=== PATIENT | female | born 1970 | race Caucasian/White ===

== ENCOUNTER 2016-12-02 10:59 | Emergency (ER) | payer BC ==
[~2016-12-02] VITALS: Ht 167.6 cm; Wt 52.2 kg
[~2016-12-02 10:59] MED LIST: AMBIEN10 M1 ORAL; COLACE100 MG ORAL; GILDESS FE 1-21 EACH PO; HYDROCODON-ACE1 EA15 ORAL; LEXAPRO10 MG ORAL; NITROFURANTOIN100 M2 ORAL; REGLAN10 MG ORAL; XANAX0.5 MG ORAL; ZOFRAN4 M1 ORAL
[2016-12-02] MEDS ORDERED: TdaP Vaccine 0.5ml Syr IM ONE (12:00)
[2016-12-02] MEDS ORDERED: Bacitracin Oint UD TOPIC ONE (12:09)
[2016-12-02] MEDS ORDERED: Norco 5mg/325mg tab ORAL ONE (12:15)
[2016-12-02] MEDS ORDERED: LEXAPRO20 MG ORAL (13:10)
[2016-12-02] MEDS ORDERED: KLONOPIN0.5 MG ORAL (13:10)
--- NOTE | 2016-12-02 13:47 | Diagnostic Imaging Report ---
Indication: TRAUMA Technique: 3 views hand Comparison: none Findings: No acute fractures. No dislocations. Joint spaces are preserved Impression: Negative
--- NOTE | 2016-12-02 13:49 | Diagnostic Imaging Report ---
Indications: TRAUMA left foot pain Technique: 3 views of the left foot Comparison: None Findings: No acute fractures. No dislocations. Joint spaces are preserved. No radiopaque foreign body. Normal mineralization. Impression: No acute process
--- NOTE | 2016-12-02 13:50 | Diagnostic Imaging Report ---
Indication: TRAUMA Technique: 3 views right foot Comparison: none Findings: No acute fractures. No dislocations. The joint spaces are preserved. There is mild hallux valgus Impression: Negative
--- NOTE | 2016-12-02 14:32 | Diagnostic Imaging Report ---
Indication: TRAUMA Technique: 3 views left hand Comparison: none Findings: There is ulnar minus variance. No acute fractures. No dislocations. Joint spaces are preserved. Impression: No acute process
--- NOTE | 2016-12-02 14:44 | Emergency Room Report ---
History of Present Illness General Chief Complaint: Animal Bite Source: Patient Present Illness HPI This patient states that she was trying to stop her pitbull dog from attacking killing her cat. She states that during the process when she was holding back the dog the dog attacked her and bit her on her legs, hands and arms. She states that the worse pain is on her left heel and foot. She has no other injuries or complaints. Allergies: Coded Allergies: No Known Allergies (Unverified , 11/10/14) Patient History Past Medical History: none Social History: Denies: alcohol use, drug use, smoking Reviewed Nursing Documentation: PMH: Agreed, PSxH: Agreed Nursing Documentation-PMH Past Medical History: No Stated History Review of Systems All Other Systems: negative except mentioned in HPI Physical Exam Vital Signs Date Time Temp Pulse Resp B/P Pulse Ox O2 Delivery O2 Flow Rate FiO2 12/02/16 11:15 98.8 93 18 113/54 98 Room Air Sp02 EP Interpretation: reviewed, normal General Appearance: no apparent distress, alert, GCS 15, non-toxic Head: normocephalic, other - Superficial abrasion of the right cheek. Eyes: bilateral eye PERRL, bilateral eye normal inspection ENT: hearing grossly normal, normal pharynx, no angioedema, normal voice Neck: full range of motion, supple/symm/no masses Respiratory: no respiratory distress, no retraction, no accessory muscle use, speaking full sentences Rectal: deferred Musculoskeletal: back normal, normal range of motion, other - Puncture wounds consistent with teeth bite of the left heel with associated swelling and ecchymoses. The puncture wounds of the left toes, top of the left foot and left sampson. Scattered bite hunter/puncture wounds on the right foot, toes, sampson, right and left hands and right and left forearms. Swelling and ecchymoses of the left second and third digits. Pain with range of motion of the second and third digits. Neurologic: alert, oriented x3, responsive, motor strength/tone normal, sensory intact, speech normal Psychiatric: judgement/insight normal, memory normal, mood/affect normal, no suicidal/homicidal ideation Reflexes: 3+ bicep (R), 3+ bicep (L), 3+ tricep (R), 3+ tricep (L), 3+ knee (R) , 3+ knee (L) Skin: normal color, no rash, warm/dry, well hydrated Lymphatic: no adenopathy Procedures Splinting Splinting : Consent: Verbal Location: L. 2nd and 3rd digit Pre-Made Type: metal Splint: fingers Pre-Proc Neuro Vasc Exam: normal Post-Proc Neuro Vasc Exam: normal Patient Tolerated: Well Complications: None Medical Decision Making Diagnostic Impression: Primary Impression: Multiple puncture wounds Additional Impressions: Dog bites Abrasions of multiple sites Multiple contusions ER Course This patient presents with multiple puncture wounds secondary to dog bites on her feet, legs, hands and arms. She also has an abrasion on her face. She has sprained of her left second and third digits. All of her wounds were irrigated and bacitracin was applied. The wounds were dressed. I did obtain x-rays of bilateral feet and hands and was no evidence of fracture or foreign body. The patient was also given a tetanus shot. The dog attacked the patient is her own dog and is fully immunized to include rabies. I will give the patient course of antibiotics to prevent infection. She was also given crutches for comfort given that she has significant swelling, ecchymoses an injury to the soft tissue of her left heel. Patient is given close return precautions and followup instructions. Other X-Ray Diagnostic Results Other X-Ray Diagnostic Results : X-Ray Ordered: R. hand, L. hand, R. foot, L. foot EP Interpretation: No Findings: other Number of Views: other Other Impression No fracture or foreign body. Please see official reports. Last Vital Signs Date Time Temp Pulse Resp B/P Pulse Ox O2 Delivery O2 Flow Rate FiO2 12/02/16 11:15 98.8 93 18 113/54 98 Room Air Disposition: HOME, SELF-CARE Condition: Improved Referrals: NON PHYSICIAN (PCP) ERIC WU D.O. Dec 02, 2016 14:44
[2016-12-02] MEDS ORDERED: IBUPROFEN600 MG ORAL (14:46)
[2016-12-02] MEDS ORDERED: NORCO 5-325 TA1 EAC1 ORAL (14:46)
[2016-12-02] MEDS ORDERED: AUGMENTIN 875-1 EAC1 ORAL (14:46)
[2016-12-02 15:00] VITALS: BP 92/54
== END 2016-12-02 15:03 | disposition home or self-care (01) ==
LOC: EMR 11:37
DX: S81.852A Open bite, left lower leg, initial encounter (principal); S81.832A Puncture wound without foreign body, left lower leg, initial encounter; S91.135A Puncture wound without foreign body of left lesser toe(s) without damage to nail, initial encounter; S00.81XA Abrasion of other part of head, initial encounter; S91.332A Puncture wound without foreign body, left foot, initial encounter; S91.331A Puncture wound without foreign body, right foot, initial encounter; S81.831A Puncture wound without foreign body, right lower leg, initial encounter; S51.831A Puncture wound without foreign body of right forearm, initial encounter; S90.122A Contusion of left lesser toe(s) without damage to nail, initial encounter; S90.32XA Contusion of left foot, initial encounter; W54.0XXA Bitten by dog, initial encounter; Y92.019 Unspecified place in single-family (private) house as the place of occurrence of the external cause; Z23 Encounter for immunization
CPT/HCPCS: 29280; 90471; 90715; 96372; 99284

== ENCOUNTER 2017-05-02 16:31 | Emergency (ER) | payer BC ==
[~2017-05-02] VITALS: Ht 167.6 cm; Wt 54.4 kg
[~2017-05-02 16:31] MED LIST changes: +AUGMENTIN 875-1 EAC1 ORAL; +IBUPROFEN600 MG ORAL; +KLONOPIN0.5 MG ORAL; +LEXAPRO20 MG ORAL; +NORCO 5-325 TA1 EAC1 ORAL
[2017-05-02] MEDS ORDERED: Norco 5mg/325mg tab ORAL ONE (17:15)
--- NOTE | 2017-05-02 17:23 | Emergency Room Report ---
History of Present Illness General Chief Complaint: Upper Extremity Injury Source: Patient Present Illness HPI 46 YO Female presents to the ED c/o 06/01 in severity localized pain to the base of the left thumb s/p FOOSH yesterday. denies bruising, pt. denies previous injury to the extremity. pt. reports pain exacerbated with movement of the left thumb. pt. is right hand dominant. Denies hitting her head or LOC. Denies numbness tingling or loss of sensation or gross motor movements of the extremities, incontinence of bowel or bladder. Denies CP, Palpitations, LOC, AMS , dizziness, Changes in Vision, Sensation, paresthesias, or a sudden severe headache. Allergies: Coded Allergies: No Known Allergies (Unverified , 11/10/14) Patient History Past Medical History: see triage record Past Surgical History: none Pertinent Family History: none Last Menstrual Period: 04/23/17 Now: No : 0 Para: 0 Reviewed Nursing Documentation: PMH: Agreed, PSxH: Agreed Nursing Documentation-PMH Past Medical History: No History, Except For Hx Cardiac Problems: No - fibroid removed ,hyperthyroidism,panai attacks Review of Systems All Other Systems: negative except mentioned in HPI Physical Exam Vital Signs Date Time Temp Pulse Resp B/P (MAP) Pulse Ox O2 Delivery O2 Flow Rate FiO2 05/02/17 16:49 97.5 79 18 120/81 100 Room Air Sp02 EP Interpretation: reviewed, normal General Appearance: no apparent distress, alert, GCS 15, non-toxic Head: normocephalic, atraumatic Eyes: bilateral eye normal inspection, bilateral eye PERRL ENT: hearing grossly normal, normal pharynx, no angioedema, normal voice Neck: full range of motion, supple/symm/no masses Respiratory: chest non-tender, lungs clear, normal breath sounds, speaking full sentences Cardiovascular #1: regular rate, rhythm, no edema Cardiovascular #2: 2+ radial (R), 2+ radial (L) Musculoskeletal: back normal, gait/station normal, normal range of motion, tender - Snuff box ttp of the left hand , ttp at the base of the left thumb with Limited ROM secondary to pain. no obvious deformity, pt. NVI Neurologic: alert, oriented x3, responsive, motor strength/tone normal, sensory intact, speech normal Psychiatric: judgement/insight normal, memory normal, mood/affect normal Skin: normal color, no rash, warm/dry, well hydrated Medical Decision Making PA Attestation Dr. Ramirez is my supervising Physician whom patient management has been discussed with. Diagnostic Impression: Primary Impression: Hand contusion Qualified Codes: S60.222A - Contusion of left hand, initial encounter Additional Impression: Left thumb sprain Qualified Codes: S63.602A - Unspecified sprain of left thumb, initial encounter ER Course 46 YO Female presents to the ED c/o 06/01 in severity localized pain to the base of the left thumb s/p FOOSH yesterday. denies bruising, pt. denies previous injury to the extremity. pt. reports pain exacerbated with movement of the left thumb. pt. is right hand dominant. Denies hitting her head or LOC. Denies numbness tingling or loss of sensation or gross motor movements of the extremities, incontinence of bowel or bladder. Denies CP, Palpitations, LOC, AMS , dizziness, Changes in Vision, Sensation, paresthesias, or a sudden severe headache. Ddx considered but are not limited to Fracture, dislocation, contusion, Sprain/ Strain/Spasm, scaphoid fx. Vital signs: are WNL, pt. is afebrile H&PE are most consistent with musculoskeletal injury will perform imaging to r/ o fractures/dislocations. ORDERS: - X-ray Left Hand 3 views - negative for fx, Dislocation, or significant soft tissue injury, per preliminary read in ED by Dr. Ramirez - interpretation is scribed by PA. ED INTERVENTIONS: - [place] PO Thumb Spika Splint applied to the left hand by mechanical facilities technician. Pt. remains neurovascularly intact. DISCHARGE: At this time pt. is stable for d/c to home. Will provide printed patient care instructions, and any necessary prescriptions. Care plan and follow up instructions have been discussed with the patient prior to discharge. Last Vital Signs Date Time Temp Pulse Resp B/P (MAP) Pulse Ox O2 Delivery O2 Flow Rate FiO2 05/02/17 16:49 97.5 79 18 120/81 100 Room Air Disposition: HOME, SELF-CARE Condition: Stable Scripts Acetaminophen* (TYLENOL EXTRA STRENGTH*) 500 Mg Tablet 500 MG ORAL Q6H, #30 TAB 0 Refills Prov: Cassidy Thomas 05/02/17 Referrals: NON PHYSICIAN (PCP) Patient Instructions: Scaphoid Fracture, Wrist, Thumb Sprain Additional Instructions: Take medications as directed. Follow up with a Primary Care Provider in 3-5 days, even if your symptoms have resolved. --Please review list of primary care clinics, if you do not already have a primary care provider Return sooner to ED if new symptoms occur, or current symptoms become worse. Do not drink alcohol, drive, or operate heavy machinery while taking [place] as this may cause drowsiness. - Please note that this Emergency Department Report was dictated using [id number] picker technology software, occasionally this can lead to erroneous entry secondary to interpretation by the dictation equipment. Cassidy Thomas May 02, 2017 17:23
[2017-05-02] MEDS ORDERED: TYLENOL EXTRA500 MG ORAL (17:41)
[2017-05-02 17:48] VITALS: BP 114/68
[2017-05-02 17:55] VITALS: BP 114/68
--- NOTE | 2017-05-03 10:34 | Diagnostic Imaging Report ---
Indication: PAIN Technique: 3 views left hand Comparison: none Findings: No acute fractures. No dislocations. Joint spaces are preserved. Impression: Negative This agrees with the preliminary interpretation provided by the emergency room physician
== END 2017-05-02 17:57 | disposition home or self-care (01) ==
LOC: EMR 16:57
DX: S60.222A Contusion of left hand, initial encounter (principal); S63.602A Unspecified sprain of left thumb, initial encounter; W19.XXXA Unspecified fall, initial encounter; Y92.89 Other specified places as the place of occurrence of the external cause
CPT/HCPCS: 99283